=== PATIENT | male | born 1950 | race Hispanic/Latino ===

== ENCOUNTER → 2019-12-12 | Outpatient (CLI) | payer OTHER | END | disposition home or self-care (01) | LOC: SHCH 13:08 | PROVIDERS: ATTEND Internal Medicine Cardiovascular Disease | DX: I10 Essential (primary) hypertension (principal) | CPT/HCPCS: 93306 ==

== ENCOUNTER 2020-02-19 14:50 | Inpatient (IN) | payer MEDICARE, OTHER ==
[2020-02-19] VITALS (12 sets, daily range): BP systolic 101–125; BP diastolic 39–61
[~2020-02-19] VITALS: Ht 167.6 cm; Wt 81.4 kg
[2020-02-19 15:24] LABS: BASOPHILS % (AUTO) 0.1 % (0.0-5.0); LYMPHOCYTES % (AUTO) 3.4 % (21.0-51.0); MEAN CORPUSCULAR HEMOGLOBIN 27.3 pg (27.0-33.0); MEAN CORPUSCULAR VOLUME 88.2 fL (79-99); MONOCYTES % (AUTO) 4.2 % (3.0-13.0); PLATELET COUNT (AUTO) 154 K/uL (130-400); RED BLOOD CELL COUNT(AUTO) 5.78 MIL/uL (4.50-6.20); RED CELL DISTRIBUTION WIDTH 14.8 % (11.0-15.5); WHITE BLOOD COUNT (AUTO) 9.4 K/uL (4.8-10.8)
[2020-02-19] MEDS ORDERED: ACETAMINOPHEN 325 MG TAB ONE (15:26)
[2020-02-19] MEDS ORDERED: ONDANSETRON HCL 4 MG/2 ML VIAL ONE (15:26)
[2020-02-19 15:38] LABS: INR 1.09 (0.85-1.15); PROTHROMBIN TIME 11.7 SEC (9.6-11.6)
[2020-02-19] MEDS ORDERED: SODIUM CHLORIDE 0.9% 50 ML IV ONE (15:43)
[2020-02-19] MEDS ORDERED: CEFTRIAXONE SODIUM 2 GM VIAL ONE (15:43)
[2020-02-19 16:05] LABS: ALANINE AMINOTRANSFERASE 40 U/L (12-78); ALBUMIN 3.3 g/dL (3.5-5.0); ASPARTATE AMINOTRANSFERASE 12 U/L (10-37); BILIRUBIN,TOTAL 0.9 mg/dL (0.2-1.0); CARBON DIOXIDE 15 mmol/L (21-32); CHLORIDE 91 mmol/L (101-111); CREATINE KINASE, TOTAL 132 U/L (21-232); CREATININE 4.3 mg/dL (0.5-1.5); GLOMERULAR FILTR. RATE CALC 15 mL/min (>60); MYOGLOBIN 1319 ng/mL (10-92); POTASSIUM 5.4 mmol/L (3.5-5.1); SODIUM SERUM 130 mmol/L (136-145); TOTAL PROTEIN, SERUM 6.8 g/dL (6.0-8.3); TROPONIN I < 0.04 ng/mL (0.00-0.06)
[2020-02-19 16:17] LABS: UREA NITROGEN, BLOOD 131 mg/dL (7-18)
[2020-02-19 16:34] LABS: GLUCOSE,RANDOM 1140 mg/dL (70-105)
[2020-02-19 16:53] LABS: ABG BASE EXCESS -14.2 mmol/L (-2.0-3.0); ABG HCO3 11.8 mmol/L (21.0-28.0); ABG OXYGEN SATURATION 96.7 % (95.0-99.0); ABG PCO2 29 mmHg (35-48)
[2020-02-19] MEDS ORDERED: INSULIN HUMULIN R 100 UNIT/ML 3ML ONE ×2 (17:24→18:30)
[2020-02-19 17:41] LABS: APPEARANCE,URINE Clear (CLEAR); BILIRUBIN,URINE Negative (NEGATIVE); COLOR,URINE Yellow (YELLOW); GLUCOSE, URINE (UA) >=1000 mg/dL (NEGATIVE); KETONES,URINE 15 mg/dL (NEGATIVE); LEUKOCYTE ESTERASE ,URINE Negative (NEGATIVE); NITRATE,URINE Negative (NEGATIVE); OCCULT BLOOD,URINE Small (NEGATIVE); PROTEIN,URINE Trace mg/dL (NEGATIVE); UROBILINOGEN,URINE 0.2 mg/dL (0.2-1.0)
[2020-02-19 18:13] LABS: BACTERIA,URINE Few /HPF (None Seen); MUCUS,URINE Few LPF (None Seen); SQUAMOUS EPITHELIAL CELL,UR Few /HPF (0-2)
[2020-02-19] MEDS ORDERED: SODIUM CHLORIDE 0.9% 100 ML IV ONE (18:31)
[2020-02-19] MEDS ORDERED: GLUCAGON 1MG KIT 1 MG ML IM PRN (21:15)
[2020-02-19] MEDS ORDERED: SODIUM CHLORIDE 0.9% 1000ML 1,000 ML IV SCH ×2 (21:15→21:30)
[2020-02-19] MEDS ORDERED: ACETAMINOPHEN 325 MG TAB PO PRN (21:15)
[2020-02-19] MEDS ORDERED: DEXTROSE 5 %-0.45 % NACL 1,000 ML IV SCH (21:15)
[2020-02-19] MEDS ORDERED: COMPOUND IV REFRIGERATED 1 EACH IVSOLN MISC PRN (21:15)
[2020-02-19] MEDS ORDERED: DEXTROSE 50%-WATER 50 ML DISP.SYRIN IV PRN (21:15)
[2020-02-19] MEDS ORDERED: INSULIN PRN ×4 (21:15)
[2020-02-19] MEDS ORDERED: ONDANSETRON HCL 4 MG/2 ML VIAL IVP PRN (21:15)
[2020-02-19] MEDS ORDERED: DEXTROSE 5 %-0.45 % NACL 1,000 ML IV PRN (21:30)
[2020-02-19] MEDS ORDERED: SODIUM CHLORIDE 0.9% 1000ML 1,000 ML IV ONE (21:32)
[2020-02-19 23:35] LABS: CREATININE 3.4 mg/dL (0.5-1.5); POTASSIUM 3.5 mmol/L (3.5-5.1)
[2020-02-20] VITALS (24 sets, daily range): BP systolic 119–156; BP diastolic 42–98
[2020-02-20 05:24] LABS: BASOPHILS % (AUTO) 0.1 % (0.0-5.0); EOSINOPHILS % (AUTO) 0.1 % (0.0-8.0); HEMATOCRIT 47.8 % (42-54); LYMPHOCYTES % (AUTO) 3.2 % (21.0-51.0); MEAN CORPUSCULAR HEMOGLOBIN 27.7 pg (27.0-33.0); MEAN CORPUSCULAR HGB CONC 33.7 g/dL (32.0-36.0); MEAN CORPUSCULAR VOLUME 82.1 fL (79-99); MONOCYTES % (AUTO) 4.5 % (3.0-13.0); NEUTROPHILS % (AUTO) 91.7 % (40.0-77.0); PLATELET COUNT (AUTO) 103 K/uL (130-400); RED BLOOD CELL COUNT(AUTO) 5.82 MIL/uL (4.50-6.20); RED CELL DISTRIBUTION WIDTH 13.9 % (11.0-15.5); WHITE BLOOD COUNT (AUTO) 13.9 K/uL (4.8-10.8)
[2020-02-20 05:30] LABS: HEMOGLOBIN A1C 11.1 % (4.0-6.0)
[2020-02-20 05:55] LABS: ALBUMIN 3.1 g/dL (3.5-5.0); BILIRUBIN,TOTAL 0.8 mg/dL (0.2-1.0); CREATININE 2.9 mg/dL (0.5-1.5); MAGNESIUM 3.8 mg/dL (1.80-2.40); POTASSIUM 3.5 mmol/L (3.5-5.1); THYROID STIMULATING HORMONE 0.11 uIU/mL (0.36-3.74); TOTAL PROTEIN, SERUM 6.2 g/dL (6.0-8.3)
--- NOTE | 2020-02-20 08:15 | NUR ---
AM ASSESSMENT PT LAYING IN BED, RESTING. A/O X 3. NO SOB. NO DISTRESS NOTED. DENIES CHEST PAIN OR DISCOMFORT. DENIES PALPITATIONS. TELE; SR. DENIES N/V AND/OR DIARRHEA. NPO STATUS REINFORCED. INSULIN GTT INFUSING @ 5 UNITS/HR. D5 1/2 NS INFUSION DECREASED TO @ 100 ML/HR. CONTINENT BLADDER & BOWEL. URINAL @ BEDSIDE. BEDREST. INSTRUCTED TO CALL FOR ASSISTANCE. CALL RADHA W/IN REACH.
[2020-02-20] MEDS: FAMOTIDINE/PF 20 MG/2 ML VIAL IV SCH ×2 (08:43→08:46)
[2020-02-20 11:39] LABS: CREATININE 2.5 mg/dL (0.5-1.5); POTASSIUM 3.1 mmol/L (3.5-5.1)
--- NOTE | 2020-02-20 13:04 | NUR ---
1215 spoke to patient and spose in room, spouse requesting information to switch from VA Plan to Medicare. I spoke to Louisa with [employer], stated she will contact patient.
--- NOTE | 2020-02-20 13:35 | NUR ---
MD VISIT DR GAGE IN TO SEE PT. PT'S SPOUSE @ BEDSIDE. UPDATED ON PT'S STATUS 8 PLAN OF CARE REVIEWED W/PT & PT'S SPOUSE. ORDERS RECEIVED & ENTERED. PT TO BEGIN CLEAR LIQUID DIET. INSULIN GTT TO BE WEANED OFF.
[2020-02-20] MEDS ORDERED: GLUCAGON 1MG KIT 1 MG ML IM PRN (13:45)
[2020-02-20] MEDS ORDERED: DEXTROSE 50%-WATER 50 ML DISP.SYRIN IV PRN (13:45)
[2020-02-20] MEDS: 1/2 NORMAL SALINE + 20 MEQ KCL 1,000 ML IV SCH ×2 (14:44→23:45)
[2020-02-20] MEDS ORDERED: INSULIN GLARGINE 100 UNITS/ML 10 ML VIAL SQ ONE (15:15)
[2020-02-20] MEDS ORDERED: ATEN50TA PO (16:21)
[2020-02-20] MEDS ORDERED: FOLI0.8T22 PO (16:21)
[2020-02-20] MEDS ORDERED: ATOR-2 PO (16:21)
[2020-02-20] MEDS ORDERED: HYDR25TA PO (16:21)
[2020-02-20] MEDS ORDERED: LOSA100T58 PO (16:21)
[2020-02-20] MEDS ORDERED: AMLO-258 PO (16:21)
[2020-02-20] MEDS ORDERED: ASPI-1443 PO (16:22)
[2020-02-20] MEDS ORDERED: METF-444 PO (16:22)
--- NOTE | 2020-02-20 16:40 | NUR ---
DC PLAN PATIENT LIVES WITH SPOUSE. INDEPENDENT ABLE TO PERFORM ADL'S. PATIENT HAS NO SERVICES. USES A WALKER. FEELS SAFE TO RETURN HOME. Addendum: 02/20/20 at 1642 by LIZ KIM RN CM Amended: Links added.
[2020-02-20] MEDS: INSULIN HUMULIN R 100 UNIT/ML 3ML SQ SCH ×2 (17:08→21:11)
[2020-02-20] MEDS: ATORVASTATIN CALCIUM 20 MG TABLET PO SCH (21:12)
[2020-02-21] VITALS (16 sets, daily range): BP systolic 118–145; BP diastolic 68–96
[2020-02-21 03:14] LABS: HEMATOCRIT 45.2 % (42-54); MEAN CORPUSCULAR HEMOGLOBIN 27.4 pg (27.0-33.0); MEAN CORPUSCULAR HGB CONC 33.6 g/dL (32.0-36.0); MEAN CORPUSCULAR VOLUME 81.4 fL (79-99); RED BLOOD CELL COUNT(AUTO) 5.55 MIL/uL (4.50-6.20); RED CELL DISTRIBUTION WIDTH 14.3 % (11.0-15.5); WHITE BLOOD COUNT (AUTO) 8.9 K/uL (4.8-10.8)
[2020-02-21 03:35] LABS: CREATININE 2.1 mg/dL (0.5-1.5); MAGNESIUM 2.4 mg/dL (1.80-2.40); PHOSPHORUS 1.7 mg/dL (2.5-4.9); POTASSIUM 3.1 mmol/L (3.5-5.1); URIC ACID 6.5 mg/dL (2.6-7.2)
[2020-02-21] MEDS: INSULIN HUMULIN R 100 UNIT/ML 3ML SQ SCH ×4 (07:30→20:54)
[2020-02-21] MEDS: FAMOTIDINE/PF 20 MG/2 ML VIAL IV SCH (08:11)
[2020-02-21] MEDS: Vitamin B Complex/Vit C/Folic Acid PO SCH (08:11)
[2020-02-21] MEDS: ASPIRIN 81 MG EC TAB PO SCH (08:11)
[2020-02-21] MEDS ORDERED: NON-FORMULARY MEDICATION 1 EACH (Folic Acid/Vitamin B Comp W-C (Rena-Vite Tablet) 1 TAB) PO SCH (09:00)
[2020-02-21] MEDS ORDERED: INSULIN GLARGINE 100 UNITS/ML 10 ML VIAL SQ SCH (09:00)
[2020-02-21] MEDS: 1/2 NORMAL SALINE + 20 MEQ KCL 1,000 ML IV SCH (09:45)
--- NOTE | 2020-02-21 10:35 | NUR ---
DYSPHAGIA EVAL COMPLETED. -S/S OF ASPIRATION. RECOMMEND REGULAR TEXTURE,THIN LIQUIDS; PILLS WHOLE WITH LIQUIDS. Addendum: 02/21/20 at 1039 by TRA TERRELL, [facility] Amended: Links added.
--- NOTE | 2020-02-21 10:38 | NUR ---
RD NOTIFICATION Pt admitted due to DKA and Renal Failure. Pt had a BG of 1140 upon admission with an A1C of 11.1 Upon admission pt stated having dysphagia issues. Pt is still having dysphagia problems. ASBESTOS CLOTH INSPECTOR consult has been placed. Pt is currently on a CLD and consuming 100% as per EMR. RD RECOMMENDATION: When medically appropriate to advance pt to a regular diet. Consider a [address] will follow renal function and make recommendations. Due to current low potassium and phosphorus, renal non HD diet modifier is not recommended. Follow ASBESTOS CLOTH INSPECTOR recommendations for any other texture modifications. Monitor labs. Pt has low potassium and low phosphors, if medically feasible consider supplementation. RD will follow with diet education. LABS: NA 155, K 3.1, CL 118, BUN 44, CREAT 2.1, GFR 33, BG 202, URIC ACID 6.5, PHOS 1.7, TOT CA 8.4, ALB 3.1, LACTIC ACID 2.2 Addendum: 02/21/20 at [address] Amended: Links added.
--- NOTE | 2020-02-21 14:00 | NUR ---
DR. GAGE ROUNDS DR. GAGE AT BEDSIDE. INCREASE AM LANTUS. 20MEQ PO OF POTASSIUM GIVEN PER DR. GOLDEN.
--- NOTE | 2020-02-21 15:42 | NUR ---
RD TEACHING NOTE RD contacted pt through pt's room phone in the AM. Pt requested education be done later in the day. RD faxed educational material for DM, and S/S of Hyperglycemia. RD called again at 3:40 PM, no answer. Unable to conduct education at this time. RD will continue to follow pt. Contact dietary as nutritional concerns arise. Thank you. Addendum: 02/21/20 at [address] Amended: Links added.
[2020-02-21] MEDS ORDERED: POTASSIUM CHLORIDE 20 MEQ ERTAB PO ONE (15:47)
[2020-02-21] MEDS: ATORVASTATIN CALCIUM 20 MG TABLET PO SCH (20:54)
[2020-02-22 03:00] VITALS: BP 143/85
[2020-02-22 03:59] LABS: HEMATOCRIT 47.5 % (42-54); MEAN CORPUSCULAR HEMOGLOBIN 27.1 pg (27.0-33.0); MEAN CORPUSCULAR HGB CONC 32.6 g/dL (32.0-36.0); MEAN CORPUSCULAR VOLUME 82.9 fL (79-99); PLATELET COUNT (AUTO) 66 K/uL (130-400); RED BLOOD CELL COUNT(AUTO) 5.73 MIL/uL (4.50-6.20); RED CELL DISTRIBUTION WIDTH 14.7 % (11.0-15.5); WHITE BLOOD COUNT (AUTO) 8.5 K/uL (4.8-10.8)
[2020-02-22 04:07] LABS: CREATININE 1.8 mg/dL (0.5-1.5); MAGNESIUM 2.2 mg/dL (1.80-2.40); PHOSPHORUS 2.2 mg/dL (2.5-4.9); POTASSIUM 3.6 mmol/L (3.5-5.1)
[2020-02-22 04:28] LABS: BAND NEUTROPHILS % (MANUAL) 2 % (0-2); EOSINOPHILS % (MANUAL) 3 % (1-6); LYMPHOCYTES % (MANUAL) 16 % (22-44); MAN.DIFF COMMENT-IMPRESSION MANUAL DIFFERENTIAL; MONOCYTES % (MANUAL) 1 % (2-9); PLATELET MORPHOLOGY COMMENT DECREASED; REACTIVE LYMPHOCYTES 2 % (0-0); SEGMENTED NEUTROPHILS % 76 % (40-70)
[2020-02-22] MEDS: INSULIN HUMULIN R 100 UNIT/ML 3ML SQ SCH ×4 (06:42→20:39)
[2020-02-22 07:30] VITALS: BP 158/93
[2020-02-22] MEDS: Vitamin B Complex/Vit C/Folic Acid PO SCH (09:01)
[2020-02-22] MEDS: ASPIRIN 81 MG EC TAB PO SCH (09:02)
[2020-02-22] MEDS: FAMOTIDINE/PF 20 MG/2 ML VIAL IV SCH (09:02)
[2020-02-22] MEDS: INSULIN GLARGINE 100 UNITS/ML 10 ML VIAL SQ SCH (09:03)
[2020-02-22 11:00] VITALS: BP 154/86
--- NOTE | 2020-02-22 11:25 | NUR ---
Report given to Digna Gonzalez RN, to assume nursing care for the rest of the shift
[2020-02-22 13:00] VITALS: BP 138/79
--- NOTE | 2020-02-22 13:45 | NUR ---
TRANSFER REPORT GIVEN TO VINEET CONTRERAS AND PATIENT MOVED TO ROOM 301. PATIENT'S AT BEDSIDE. VS WNL CHARTED.
--- NOTE | 2020-02-22 14:00 | NUR ---
RECEIVED PT TRANSFER FROM 2ND FLOOR I HAVE ORIENTED HIM AND HIS TO ROOM AND CALL LIGHT SYSTEM. PT STATED UNDERSTANDINIG AND ALL OF HIS QUESTIONS ANSWERED.
[2020-02-22 16:00] VITALS: BP 133/87
[2020-02-22 20:16] VITALS: BP 136/85
[2020-02-22] MEDS: ATORVASTATIN CALCIUM 20 MG TABLET PO SCH (21:55)
[2020-02-22] MEDS: DOCUSATE CALCIUM 240 MG CAP PO SCH (21:55)
[2020-02-23 00:16] VITALS: BP 137/85
[2020-02-23 04:16] VITALS: BP 156/90
[2020-02-23 05:47] LABS: HEMATOCRIT 45.9 % (42-54); MEAN CORPUSCULAR HEMOGLOBIN 27.2 pg (27.0-33.0); MEAN CORPUSCULAR HGB CONC 32.7 g/dL (32.0-36.0); MEAN CORPUSCULAR VOLUME 83.3 fL (79-99); PLATELET COUNT (AUTO) 69 K/uL (130-400); RED BLOOD CELL COUNT(AUTO) 5.51 MIL/uL (4.50-6.20); RED CELL DISTRIBUTION WIDTH 14.6 % (11.0-15.5); WHITE BLOOD COUNT (AUTO) 8.7 K/uL (4.8-10.8)
[2020-02-23 06:02] LABS: CREATININE 1.8 mg/dL (0.5-1.5); MAGNESIUM 2.1 mg/dL (1.80-2.40); PHOSPHORUS 2.9 mg/dL (2.5-4.9); POTASSIUM 4.4 mmol/L (3.5-5.1)
[2020-02-23] MEDS: INSULIN HUMULIN R 100 UNIT/ML 3ML SQ SCH ×4 (07:30→21:19)
[2020-02-23 08:00] VITALS: BP 130/87
[2020-02-23 08:33] LABS: EOSINOPHILS % (MANUAL) 1 % (1-6); LYMPHOCYTES % (MANUAL) 6 % (22-44); MAN.DIFF COMMENT-IMPRESSION MANUAL DIFFERENTIAL; MONOCYTES % (MANUAL) 6 % (2-9); PLATELET MORPHOLOGY COMMENT DECREASED; SEGMENTED NEUTROPHILS % 87 % (40-70)
[2020-02-23] MEDS: FAMOTIDINE/PF 20 MG/2 ML VIAL IV SCH (09:09)
[2020-02-23] MEDS: Vitamin B Complex/Vit C/Folic Acid PO SCH (09:09)
[2020-02-23] MEDS: ASPIRIN 81 MG EC TAB PO SCH (09:09)
[2020-02-23] MEDS: DOCUSATE CALCIUM 240 MG CAP PO SCH ×2 (09:09→21:14)
[2020-02-23] MEDS: INSULIN GLARGINE 100 UNITS/ML 10 ML VIAL SQ SCH (09:11)
[2020-02-23 09:33] LABS: APPEARANCE,URINE Clear (CLEAR); BILIRUBIN,URINE Negative (NEGATIVE); COLOR,URINE Yellow (YELLOW); GLUCOSE, URINE (UA) 500 mg/dL (NEGATIVE); KETONES,URINE 15 mg/dL (NEGATIVE); LEUKOCYTE ESTERASE ,URINE Negative (NEGATIVE); NITRATE,URINE Negative (NEGATIVE); OCCULT BLOOD,URINE Trace (NEGATIVE); PROTEIN,URINE POS 1+ mg/dL (NEGATIVE)
[2020-02-23 10:17] LABS: BACTERIA,URINE Rare /HPF (None Seen); RBC,URINE None Seen /HPF (0-1); SQUAMOUS EPITHELIAL CELL,UR 0-2 /HPF (0-2); WBC,URINE None Seen /HPF (0-1)
[2020-02-23 11:57] VITALS: BP 141/95
[2020-02-23 16:00] VITALS: BP 155/83
--- NOTE | 2020-02-23 16:36 | NUR ---
I HAVE GIVEN PT AND HIS EDUCATION ON DIABETIC MANAGEMENT INCLUDING HOW TO INJECT, DIFFERENT KINDS OF INSULIN, SIGNS AND SYMPTOMS OF HIGH AND LOW BLOOD SUGAR LEVELS TO WATCH FOR AND WHEN TO CALL 911, HOW TO TREAT LOW BLOOD SUGARS AT HOME, DM FOOT CARE. PT AND STATED UNDERSTANDING OF ALL INSTRUCTIONS AND I HAVE GIVEN THEM HANDOUTS ON ALL THE INFORMATION; I HAVE ENTERED ORDERS FOR CASE MANAGEMENT TO SEE THEM BECAUSE PT HAS NO GLUCOMETER MACHINE AND MAY REQUIRE ASSISTANCE IN PURCHASING ONE. I ALSO HAVE ENTERED FOR DIETARY TO SEE THE PATIENT FOR MORE EDUCATION ON DIET SELECTIONS.
[2020-02-23 19:00] VITALS: BP 142/80
[2020-02-23] MEDS: ATORVASTATIN CALCIUM 20 MG TABLET PO SCH (21:14)
[2020-02-24] VITALS: BP 131/69
[2020-02-24 03:53] VITALS: BP 124/71
[2020-02-24 06:07] LABS: HEMATOCRIT 41.8 % (42-54); MEAN CORPUSCULAR HGB CONC 32.8 g/dL (32.0-36.0); MEAN CORPUSCULAR VOLUME 82.3 fL (79-99); PLATELET COUNT (AUTO) 113 K/uL (130-400); RED BLOOD CELL COUNT(AUTO) 5.08 MIL/uL (4.50-6.20); RED CELL DISTRIBUTION WIDTH 14.4 % (11.0-15.5); WHITE BLOOD COUNT (AUTO) 8.4 K/uL (4.8-10.8)
[2020-02-24] MEDS: INSULIN HUMULIN R 100 UNIT/ML 3ML SQ SCH ×4 (06:37→21:35)
[2020-02-24 07:16] LABS: EOSINOPHILS % (MANUAL) 2 % (1-6); LYMPHOCYTES % (MANUAL) 12 % (22-44); MAN.DIFF COMMENT-IMPRESSION MANUAL DIFFERENTIAL; MONOCYTES % (MANUAL) 4 % (2-9); PLATELET MORPHOLOGY COMMENT SLIGHTLY DECREASED; REACTIVE LYMPHOCYTES 1 % (0-0); SEGMENTED NEUTROPHILS % 81 % (40-70)
[2020-02-24 07:59] VITALS: BP 145/90
[2020-02-24] MEDS: Vitamin B Complex/Vit C/Folic Acid PO SCH (09:45)
[2020-02-24] MEDS: ASPIRIN 81 MG EC TAB PO SCH (09:45)
[2020-02-24] MEDS: DOCUSATE CALCIUM 240 MG CAP PO SCH ×2 (09:45→21:35)
[2020-02-24] MEDS: FAMOTIDINE/PF 20 MG/2 ML VIAL IV SCH (09:47)
[2020-02-24] MEDS: INSULIN GLARGINE 100 UNITS/ML 10 ML VIAL SQ SCH (10:02)
[2020-02-24 11:41] VITALS: BP 137/73
--- NOTE | 2020-02-24 13:00 | NUR ---
RD TEACHING NOTE Pt transferred to room 301. RD was able to visit with patient and and successfully conduct DM education. Pt had previous educational material faxed at bedside. RD used the material and conducted education. RD explained carbohydrate sources, carbohydrate counting, nutrition facts label reading, portion control, and gave examples of daily meals. Pt and verbalized understanding. Pt and were encouraged to take free community classes for DM education. Pt was also encouraged to check blood sugars, fasting and 2 hr after meals. A notebook where they can write blood sugar levels was encouraged as well. RD will continue to follow. Thank you. Addendum: 02/24/20 at [address] Amended: Links added.
--- NOTE | 2020-02-24 13:09 | NUR ---
RD NOTE Pt was seen in room 301. Pt was resting comfortably with at bedside. RD education conducted 02/24/20 at time of visit. All questions were answered. Pt and verbalized understanding. Pt is tolerating diet well and consuming 100%. Pt is on a renal non HD diet with no concentrated sweets. LBM: as per EMR 02/17/20 RD recommendation: Add 75 gm CC modifier to current diet order Monitor PO intake. Monitor BG labs LABS: BG 258, ALB 3.1, TOT PRO 6.2, PHOS 2.9, A1C 11.[address] as nutritional concerns arise. Thank you. Addendum: 02/24/20 at [address] Amended: Links added.
[2020-02-24 15:50] VITALS: BP 118/78
--- NOTE | 2020-02-24 16:25 | NUR ---
DC PLAN GOT ORDER [facility] DIABETIC SUPPLY ASSISTANCE. CALLED [facility]. GOT DIFFERENT PRICES FOR COUPONS AND MEDICATION. GAVE INFO TO NURSE AND PACKET TO GIVE TO PATIENT. Addendum: 02/24/20 at 1626 by LIZ KIM RN CM Amended: Links added.
[2020-02-24] MEDS ORDERED: LACTULOSE 20 GM/30 ML UDCUP ONE (18:44)
[2020-02-24] MEDS ORDERED: LACTULOSE 20 GM/30 ML UDCUP PO SCH (19:45)
[2020-02-24 20:00] VITALS: BP 129/82
[2020-02-24] MEDS: ATORVASTATIN CALCIUM 20 MG TABLET PO SCH (21:35)
[2020-02-25] VITALS: BP 130/76
[2020-02-25 04:00] VITALS: BP 141/79
[2020-02-25 05:15] LABS: BASOPHILS % (AUTO) 0.7 % (0.0-5.0); EOSINOPHILS % (AUTO) 4.5 % (0.0-8.0); LYMPHOCYTES % (AUTO) 14.9 % (21.0-51.0); MEAN CORPUSCULAR HGB CONC 32.8 g/dL (32.0-36.0); MEAN CORPUSCULAR VOLUME 82.5 fL (79-99); MONOCYTES % (AUTO) 9.2 % (3.0-13.0); NEUTROPHILS % (AUTO) 68.8 % (40.0-77.0); PLATELET COUNT (AUTO) 143 K/uL (130-400); RED BLOOD CELL COUNT(AUTO) 4.85 MIL/uL (4.50-6.20); RED CELL DISTRIBUTION WIDTH 14.3 % (11.0-15.5); WHITE BLOOD COUNT (AUTO) 7.3 K/uL (4.8-10.8)
[2020-02-25 05:23] LABS: CREATININE 1.6 mg/dL (0.5-1.5); POTASSIUM 3.1 mmol/L (3.5-5.1)
[2020-02-25] MEDS: INSULIN HUMULIN R 100 UNIT/ML 3ML SQ SCH ×2 (05:52→11:16)
--- NOTE | 2020-02-25 05:55 | NUR ---
potassium 3.1 Informed on-call DR. Mckenzie via phone with an order to give Potassium 20 MEQ po x 1 dose only.
[2020-02-25] MEDS ORDERED: POTASSIUM CHLORIDE 20 MEQ ERTAB PO SCH (06:00)
[2020-02-25 08:00] VITALS: BP 139/82
[2020-02-25] MEDS: Vitamin B Complex/Vit C/Folic Acid PO SCH (09:15)
[2020-02-25] MEDS: FAMOTIDINE/PF 20 MG/2 ML VIAL IV SCH (09:15)
[2020-02-25] MEDS: DOCUSATE CALCIUM 240 MG CAP PO SCH (09:15)
[2020-02-25] MEDS: ASPIRIN 81 MG EC TAB PO SCH (09:15)
[2020-02-25] MEDS: INSULIN GLARGINE 100 UNITS/ML 10 ML VIAL SQ SCH (09:24)
[2020-02-25 11:44] VITALS: BP 134/64
[2020-02-25] MEDS ORDERED: POTASSIUM CHLORIDE 20 MEQ ERTAB PO ONE (11:47)
[2020-02-25] MEDS ORDERED: INSLAN SQ (11:49)
[2020-02-25] MEDS ORDERED: FAMO-136 PO (11:49)
[2020-02-25] MEDS ORDERED: DOCU240C25 PO (11:49)
--- NOTE | 2020-02-25 12:56 | NUR ---
DISCHARGE INSTRUCTIONS REVIEWED AND UNDERSTOOD BY PT AND SPOUSE. IV REMOVED W/O DIFFICULTY OR COMPLICATION. TELEMETRY REMOVED AND RETURNED, PT DISMISSED BY W/C IN GOOD CONDITION ACCOMPANIED BY HIS AND STAFF MEMBER
== END 2020-02-25 13:00 | disposition home or self-care (01) | DRG 638 ==
LOC: EDH 14:50 → EDHIP 17:30 → 2DH 19:43 → 3AH 02-22 14:25 → 3CH 02-24 13:46
PROVIDERS: ADMIT Internal Medicine Nephrology; ATTEND Internal Medicine Nephrology
DX: E11.10 Type 2 diabetes mellitus with ketoacidosis without coma (principal); N17.9 Acute kidney failure, unspecified; E87.0 Hyperosmolality and hypernatremia; R64 Cachexia; E11.22 Type 2 diabetes mellitus with diabetic chronic kidney disease; I95.9 Hypotension, unspecified; E87.5 Hyperkalemia; Z91.19 Patient's noncompliance with other medical treatment and regimen; Z20.828 Contact with and (suspected) exposure to other viral communicable diseases; D63.8 Anemia in other chronic diseases classified elsewhere; E11.51 Type 2 diabetes mellitus with diabetic peripheral angiopathy without gangrene; E21.3 Hyperparathyroidism, unspecified; E78.5 Hyperlipidemia, unspecified; E87.6 Hypokalemia; I12.9 Hypertensive chronic kidney disease with stage 1 through stage 4 chronic kidney disease, or unspecified chronic kidney disease; I71.4 Abdominal aortic aneurysm, without rupture; N18.9 Chronic kidney disease, unspecified; R13.10 Dysphagia, unspecified; Z68.29 Body mass index [BMI] 29.0-29.9, adult; Z79.4 Long term (current) use of insulin; Z83.3 Family history of diabetes mellitus; Z86.79 Personal history of other diseases of the circulatory system
CPT/HCPCS: 36415; 36600; 71045; 80048; 80053; 81001; 82010; 82550; 82803; 82947; 82948; 83036; 83605; 83735; 83874; 84100; 84443; 84484; 84550; 85025; 85027; 85610; 85730; 87040; 87088; 87426; 87804; 87880; 92610; 93005; 97039; 99291; G0378; J0696; J1815; J2405; J3480; J3490; J7030; J7042; U0003

== ENCOUNTER 2020-02-25 23:30 | Inpatient (IN) | payer OTHER, MEDICARE ==
[~2020-02-25 23:30] MED LIST: AMLO-258 PO; ASPI-1443 PO; ATEN50TA PO; ATOR-2 PO; DOCU240C25 PO; FAMO-136 PO; FOLI0.8T22 PO; HYDR25TA PO; INSLAN SQ; LOSA100T58 PO; METF-444 PO
[2020-02-26 00:29] LABS: BASOPHILS % (AUTO) 0.5 % (0.0-5.0); EOSINOPHILS % (AUTO) 1.6 % (0.0-8.0); HEMATOCRIT 43.2 % (42-54); LYMPHOCYTES % (AUTO) 6.8 % (21.0-51.0); MEAN CORPUSCULAR HEMOGLOBIN 27.6 pg (27.0-33.0); MEAN CORPUSCULAR HGB CONC 33.3 g/dL (32.0-36.0); MEAN CORPUSCULAR VOLUME 82.8 fL (79-99); MONOCYTES % (AUTO) 5.8 % (3.0-13.0); NEUTROPHILS % (AUTO) 83.6 % (40.0-77.0); PLATELET COUNT (AUTO) 208 K/uL (130-400); RED BLOOD CELL COUNT(AUTO) 5.22 MIL/uL (4.50-6.20); RED CELL DISTRIBUTION WIDTH 14.4 % (11.0-15.5); WHITE BLOOD COUNT (AUTO) 13.3 K/uL (4.8-10.8)
[2020-02-26 00:32] LABS: APPEARANCE,URINE Clear (CLEAR); BILIRUBIN,URINE Negative (NEGATIVE); COLOR,URINE Yellow (YELLOW); GLUCOSE, URINE (UA) >=1000 mg/dL (NEGATIVE); KETONES,URINE 15 mg/dL (NEGATIVE); LEUKOCYTE ESTERASE ,URINE Negative (NEGATIVE); NITRATE,URINE Negative (NEGATIVE); OCCULT BLOOD,URINE Small (NEGATIVE); PH,URINE 5.5 (5.0-8.0); PROTEIN,URINE POS 1+ mg/dL (NEGATIVE)
[2020-02-26 00:40] LABS: BACTERIA,URINE None Seen /HPF (None Seen); RBC,URINE 0-1 /HPF (0-1)
[2020-02-26 00:45] LABS: CREATININE 1.6 mg/dL (0.5-1.5); POTASSIUM 3.7 mmol/L (3.5-5.1)
[2020-02-26 00:50] LABS: ALBUMIN 3.1 g/dL (3.5-5.0); BILIRUBIN,TOTAL 0.8 mg/dL (0.2-1.0); TOTAL PROTEIN, SERUM 6.6 g/dL (6.0-8.3)
[2020-02-26 01:27] LABS: INR 0.92 (0.85-1.15); PARTIAL THROMBOPLASTIN TIME 23.8 SEC (26.3-35.5)
[2020-02-26] MEDS ORDERED: MORPHINE SULFATE 2 MG/ML 1ML SYG IV PRN (03:15)
[2020-02-26] MEDS ORDERED: LACTULOSE 20 GM/30 ML UDCUP PO PRN (03:15)
[2020-02-26] MEDS ORDERED: SODIUM CHLORIDE 0.9% 1000ML 1,000 ML IV SCH (03:15)
[2020-02-26] MEDS ORDERED: HYDRALAZINE HCL 20 MG/ML VIAL IV PRN (03:15)
[2020-02-26] MEDS ORDERED: ACETAMINOPHEN 325 MG TAB PO PRN ×2 (03:15)
[2020-02-26] MEDS ORDERED: DEXTROSE 50%-WATER 50 ML DISP.SYRIN IV PRN (03:15)
[2020-02-26] MEDS ORDERED: GLUCAGON 1MG KIT 1 MG ML IM PRN (03:15)
[2020-02-26] MEDS ORDERED: ONDANSETRON HCL 4 MG/2 ML VIAL IV PRN (03:15)
[2020-02-26] MEDS ORDERED: HEPARIN SODIUM 5000UNIT/ML 1ML VIAL ONE (03:25)
[2020-02-26] MEDS: INSULIN HUMULIN R 100 UNIT/ML 3ML SQ SCH ×3 (06:00→18:00)
[2020-02-26] MEDS ORDERED: INSULIN HUMULIN R 100 UNIT/ML 3ML ONE (08:16)
[2020-02-26] MEDS ORDERED: FAMOTIDINE/PF 20 MG/2 ML VIAL IV ONE (08:16)
[2020-02-26] MEDS: FAMOTIDINE/PF 20 MG/2 ML VIAL IV SCH (09:00)
[2020-02-26] MEDS ORDERED: INSULIN GLARGINE 100 UNITS/ML 10 ML VIAL SQ SCH (09:15)
[2020-02-26] MEDS: LACTATED RINGERS 1000ML 1,000 ML IV SCH ×3 (09:15→23:32)
[2020-02-26] MEDS ORDERED: LACTATED RINGERS 1000ML 1,000 ML IV ONE (12:32)
[2020-02-26] MEDS: HEPARIN SODIUM 5000UNIT/ML 1ML VIAL SQ SCH ×2 (15:15→17:13)
[2020-02-26 16:00] VITALS: BP 142/81
[2020-02-26 20:16] VITALS: BP 141/79
[2020-02-27] VITALS (7 sets, daily range): BP systolic 128–157; BP diastolic 69–88
[2020-02-27] MEDS: INSULIN HUMULIN R 100 UNIT/ML 3ML SQ SCH ×4 (00:45→17:56)
[2020-02-27 05:03] LABS: BASOPHILS % (AUTO) 0.4 % (0.0-5.0); EOSINOPHILS % (AUTO) 2.4 % (0.0-8.0); HEMATOCRIT 38.6 % (42-54); LYMPHOCYTES % (AUTO) 6.4 % (21.0-51.0); MEAN CORPUSCULAR HEMOGLOBIN 27.6 pg (27.0-33.0); MEAN CORPUSCULAR HGB CONC 33.4 g/dL (32.0-36.0); MEAN CORPUSCULAR VOLUME 82.7 fL (79-99); MONOCYTES % (AUTO) 7.9 % (3.0-13.0); NEUTROPHILS % (AUTO) 81.7 % (40.0-77.0); PLATELET COUNT (AUTO) 236 K/uL (130-400); RED BLOOD CELL COUNT(AUTO) 4.67 MIL/uL (4.50-6.20); RED CELL DISTRIBUTION WIDTH 14.6 % (11.0-15.5)
[2020-02-27] MEDS: HEPARIN SODIUM 5000UNIT/ML 1ML VIAL SQ SCH ×2 (05:22→15:35)
[2020-02-27] MEDS: LACTATED RINGERS 1000ML 1,000 ML IV SCH ×3 (05:22→19:11)
[2020-02-27 05:37] LABS: CREATININE 1.4 mg/dL (0.5-1.5); MAGNESIUM 1.9 mg/dL (1.80-2.40); POTASSIUM 3.9 mmol/L (3.5-5.1)
[2020-02-27 07:43] LABS: CHOLESTEROL 131 mg/dL (<200); HDL CHOLESTEROL 35 mg/dL (29-71); LDL DIRECT 69 mg/dL (0-99); TRIGLYCERIDES 146 mg/dL (30-200)
[2020-02-27] MEDS: DOCUSATE CALCIUM 240 MG CAP PO SCH ×2 (08:46→20:39)
[2020-02-27] MEDS: Vitamin B Complex/Vit C/Folic Acid PO SCH (08:46)
[2020-02-27] MEDS: ASPIRIN 81 MG EC TAB PO SCH (08:46)
[2020-02-27] MEDS: ATENOLOL 50 MG TABLET PO SCH (08:47)
[2020-02-27] MEDS: FAMOTIDINE/PF 20 MG/2 ML VIAL IV SCH (08:47)
--- NOTE | 2020-02-27 15:35 | NUR ---
CHART CHECK COMPLETED. Pt IS AN 69-YEAR-OLD MALE ADMITTED SECONDARY TO ACUTE PANCREATITIS AND CONSTIPATION. PAST MEDICAL HISTORY SIGNIFICANT FOR DIABETES, CAD, HYPERTENSION, AND HERNIA REPAIR. PT CURRENTLY ON CLEAR THIN LIQUID DIET. PLEASE REQUEST FORMAL SKILLED SPEECH/SWALLOW EVALUATION IF Pt PRESENTS WITH +S/S OF ASPIRATION AT MEAL TIMES SUCH COUGHING, WET VOCAL QUALITY, OR THROAT CLEAR. Addendum: 02/27/20 at 1538 by TRA TERRELL [facility] Amended: Links added.
--- NOTE | 2020-02-27 16:37 | NUR ---
XAVI GOLDEN/IA MET WITH PATIENT AT BEDSIDE. PER PATIENT, IS INDEPENDENT WITH ADLS, LIVES WITH SPOUSE, HAS ROLLATOR WALKER HE DOES NOT USE AND FEELS SAFE TO RETURN HOME ONCE DISCHARGED. Addendum: 02/27/20 at 1638 by STEPHANIE AUGUSTINE RN CM Amended: Links added.
[2020-02-27] MEDS: ATORVASTATIN CALCIUM 40 MG TABLET PO SCH (20:39)
[2020-02-27] MEDS: INSULIN GLARGINE 100 UNITS/ML 10 ML VIAL SQ SCH (20:46)
[2020-02-27] MEDS: INSULIN LISPRO 100 UNIT/ML 3ML SQ SCH (21:00)
[2020-02-27] MEDS ORDERED: INSULIN HUMULIN R 100 UNIT/ML 3ML SQ SCH (21:00)
[2020-02-28 04:00] VITALS: BP 122/72
[2020-02-28] MEDS: HEPARIN SODIUM 5000UNIT/ML 1ML VIAL SQ SCH ×2 (04:23→15:11)
[2020-02-28 05:28] LABS: BASOPHILS % (AUTO) 0.6 % (0.0-5.0); EOSINOPHILS % (AUTO) 3.4 % (0.0-8.0); HEMATOCRIT 34.5 % (42-54); LYMPHOCYTES % (AUTO) 7.3 % (21.0-51.0); MEAN CORPUSCULAR HEMOGLOBIN 27.4 pg (27.0-33.0); MEAN CORPUSCULAR HGB CONC 32.8 g/dL (32.0-36.0); MEAN CORPUSCULAR VOLUME 83.5 fL (79-99); MONOCYTES % (AUTO) 10.5 % (3.0-13.0); NEUTROPHILS % (AUTO) 77.2 % (40.0-77.0); PLATELET COUNT (AUTO) 230 K/uL (130-400); RED BLOOD CELL COUNT(AUTO) 4.13 MIL/uL (4.50-6.20); RED CELL DISTRIBUTION WIDTH 14.7 % (11.0-15.5); WHITE BLOOD COUNT (AUTO) 8.7 K/uL (4.8-10.8)
[2020-02-28] MEDS: INSULIN LISPRO 100 UNIT/ML 3ML SQ SCH ×7 (05:33→21:05)
[2020-02-28 05:46] LABS: CREATININE 1.3 mg/dL (0.5-1.5); MAGNESIUM 1.8 mg/dL (1.80-2.40); POTASSIUM 3.6 mmol/L (3.5-5.1)
[2020-02-28 08:00] VITALS: BP 144/78
[2020-02-28] MEDS: FAMOTIDINE/PF 20 MG/2 ML VIAL IV SCH (09:31)
[2020-02-28] MEDS: DOCUSATE CALCIUM 240 MG CAP PO SCH ×2 (09:31→20:54)
[2020-02-28] MEDS: Vitamin B Complex/Vit C/Folic Acid PO SCH (09:31)
[2020-02-28] MEDS: ATENOLOL 50 MG TABLET PO SCH (09:32)
[2020-02-28] MEDS: ASPIRIN 81 MG EC TAB PO SCH (09:32)
[2020-02-28 12:00] VITALS: BP 136/77
[2020-02-28] MEDS: LACTATED RINGERS 1000ML 1,000 ML IV SCH ×2 (12:42→21:10)
[2020-02-28] MEDS ORDERED: POLYETHYLENE GLYCOL 3350 17 GM POWD.PACK PO SCH (13:00)
[2020-02-28 16:00] VITALS: BP 148/82
[2020-02-28 19:45] VITALS: BP 132/71
[2020-02-28] MEDS: INSULIN GLARGINE 100 UNITS/ML 10 ML VIAL SQ SCH (20:48)
[2020-02-28] MEDS: ATORVASTATIN CALCIUM 40 MG TABLET PO SCH (20:54)
[2020-02-28 23:59] VITALS: BP 135/79
[2020-02-29] MEDS: HEPARIN SODIUM 5000UNIT/ML 1ML VIAL SQ SCH (03:03)
[2020-02-29 04:40] VITALS: BP 142/73
[2020-02-29 06:22] LABS: BASOPHILS % (AUTO) 0.6 % (0.0-5.0); EOSINOPHILS % (AUTO) 4.1 % (0.0-8.0); HEMATOCRIT 35.2 % (42-54); LYMPHOCYTES % (AUTO) 8.8 % (21.0-51.0); MEAN CORPUSCULAR HEMOGLOBIN 27.6 pg (27.0-33.0); MEAN CORPUSCULAR HGB CONC 33.5 g/dL (32.0-36.0); MEAN CORPUSCULAR VOLUME 82.4 fL (79-99); MONOCYTES % (AUTO) 8.6 % (3.0-13.0); NEUTROPHILS % (AUTO) 77.2 % (40.0-77.0); PLATELET COUNT (AUTO) 290 K/uL (130-400); RED BLOOD CELL COUNT(AUTO) 4.27 MIL/uL (4.50-6.20); RED CELL DISTRIBUTION WIDTH 14.6 % (11.0-15.5); WHITE BLOOD COUNT (AUTO) 8.3 K/uL (4.8-10.8)
[2020-02-29 06:37] LABS: CREATININE 1.3 mg/dL (0.5-1.5); MAGNESIUM 1.8 mg/dL (1.80-2.40); POTASSIUM 3.7 mmol/L (3.5-5.1)
[2020-02-29 07:00] VITALS: BP 178/79
[2020-02-29] MEDS: INSULIN LISPRO 100 UNIT/ML 3ML SQ SCH ×4 (07:00→12:53)
[2020-02-29] MEDS: ASPIRIN 81 MG EC TAB PO SCH (08:19)
[2020-02-29] MEDS: FAMOTIDINE/PF 20 MG/2 ML VIAL IV SCH (08:19)
[2020-02-29] MEDS: Vitamin B Complex/Vit C/Folic Acid PO SCH (08:20)
[2020-02-29] MEDS: ATENOLOL 50 MG TABLET PO SCH (08:20)
[2020-02-29] MEDS: DOCUSATE CALCIUM 240 MG CAP PO SCH (08:20)
[2020-02-29] MEDS ORDERED: POLYETHYLENE GLYCOL 3350 17 GM POWD.PACK PO SCH (09:00)
[2020-02-29 11:00] VITALS: BP 126/71
--- NOTE | 2020-02-29 13:00 | NUR ---
PT AND SPOUSE STATE UNDERSTANDING OF DISCHARGE INSTRUCTIONS AND MEDICATION SCHEDULE. IV REMOVED W/O DIFFICULTY OR COMPLICATION. PT DISMISSED BY W/C IN GOOD CONDITION ACCOMPANIED BY STAFF AND SPOUSE
== END 2020-02-29 14:10 | disposition home or self-care (01) | DRG 440 ==
LOC: EDH 23:30 → EDHIP 02-26 03:08 → 4AH 02-26 15:42
PROVIDERS: ADMIT Internal Medicine; ATTEND Internal Medicine
DX: K85.90 Acute pancreatitis without necrosis or infection, unspecified (principal); I12.9 Hypertensive chronic kidney disease with stage 1 through stage 4 chronic kidney disease, or unspecified chronic kidney disease; N18.30 Chronic kidney disease, stage 3 unspecified; K59.00 Constipation, unspecified; E11.51 Type 2 diabetes mellitus with diabetic peripheral angiopathy without gangrene; E78.5 Hyperlipidemia, unspecified; E66.9 Obesity, unspecified; I71.9 Aortic aneurysm of unspecified site, without rupture; Z20.828 Contact with and (suspected) exposure to other viral communicable diseases; E11.22 Type 2 diabetes mellitus with diabetic chronic kidney disease; R19.04 Left lower quadrant abdominal swelling, mass and lump; Z79.899 Other long term (current) drug therapy; Z79.4 Long term (current) use of insulin
CPT/HCPCS: 36415; 74176; 74181; 80048; 80053; 80061; 81001; 82948; 83605; 83690; 83735; 84484; 85025; 85610; 85730; 93005; G0378; J1644; J1815; J3490; J7120; U0003

== ENCOUNTER → 2020-05-15 | Outpatient (CLI) | payer OTHER, MEDICARE ==
[~2020-05-15] MED LIST changes: -AMLO-258 PO; -HYDR25TA PO; -LOSA100T58 PO; -METF-444 PO
== END | disposition home or self-care (01) ==
LOC: RAH 07:35
PROVIDERS: ATTEND Internal Medicine Gastroenterology
DX: N28.1 Cyst of kidney, acquired (principal); N26.1 Atrophy of kidney (terminal); K85.90 Acute pancreatitis without necrosis or infection, unspecified; R93.3 Abnormal findings on diagnostic imaging of other parts of digestive tract
CPT/HCPCS: 74181; 76700

== ENCOUNTER → 2023-03-01 | Outpatient (CLI) | payer OTHER, MEDICARE ==
[2023-03-01 12:51] LABS: CREATININE 1.6 mg/dL (0.5-1.5); POTASSIUM 3.9 mmol/L (3.5-5.1)
== END | disposition home or self-care (01) ==
LOC: LAB 10:17
PROVIDERS: ATTEND Internal Medicine Cardiovascular Disease
DX: I10 Essential (primary) hypertension (principal)
CPT/HCPCS: 36415; 80048

== ENCOUNTER → 2023-03-13 | Outpatient (CLI) | payer OTHER ==
[~2023-03-13] MED LIST changes: +IOHEXOL 350 MG/ML 100ML INFUS..BTL IV ONE
== END | disposition home or self-care (01) ==
LOC: RAH 08:45
PROVIDERS: ATTEND Internal Medicine Cardiovascular Disease
DX: I71.02 Dissection of abdominal aorta (principal); I73.9 Peripheral vascular disease, unspecified
CPT/HCPCS: 71275; Q9967

== ENCOUNTER 2023-03-31 07:04 | Day surgery (SDC) | payer OTHER ==
[~2023-03-31 07:04] MED LIST changes: -IOHEXOL 350 MG/ML 100ML INFUS..BTL IV ONE
[2023-03-31] MEDS ORDERED: 0.9%NACL 1000ML 1,000 ML IV ONE (09:10)
[2023-03-31] MEDS ORDERED: IOHEXOL 350 MG/ML 100ML INFUS..BTL IV ONE (11:28)
[2023-03-31 13:00] VITALS: BP 160/81; PULSE 78; RESP 15
[2023-03-31 16:00] VITALS: BP 158/77; PULSE 76; RESP 16
== END 2023-03-31 16:00 | disposition home or self-care (01) ==
LOC: DAH 07:04
PROVIDERS: ATTEND Internal Medicine Cardiovascular Disease
DX: I73.9 Peripheral vascular disease, unspecified (principal); N26.1 Atrophy of kidney (terminal); I71.02 Dissection of abdominal aorta; I71.23 Aneurysm of the descending thoracic aorta, without rupture
CPT/HCPCS: 82948 ×2; 74174; 71275; J7030; Q9967

== ENCOUNTER → 2023-04-27 | Outpatient (CLI) | payer OTHER | END | disposition home or self-care (01) | LOC: SHCH 14:21 | PROVIDERS: ATTEND Internal Medicine Cardiovascular Disease | DX: I87.2 Venous insufficiency (chronic) (peripheral) (principal); R60.9 Edema, unspecified; I71.40 Abdominal aortic aneurysm, without rupture, unspecified | CPT/HCPCS: 93970 ==

== ENCOUNTER 2024-07-10 11:19 | Emergency (ER) | payer OTHER ==
[~2024-07-10] VITALS: Ht 167.6 cm; Wt 93.4 kg
[~2024-07-10 11:19] MED LIST changes: +ACET-66 PO
[2024-07-10 11:20] VITALS: BP 156/74; PULSE 67; RESP 18; TEMP 97.9
--- NOTE | 2024-07-10 11:42 | ERN ---
General Chief Complaint: Other Problems Stated Complaint: REMOVAL OF RHINO ROCKET Time Seen by MD: 11: Time Seen by Midlevel: 11:20 Source: patient History of Present Illness Initial Comments 74 y/o male who presents to the emergency department for removal of a wrong walking from the right nostril. Patient had the rhino rocket placed three days ago for epistaxis here in the ED. Patient followed up with PCP referred patient back to the ED for removal. Patient denies any bleeding or further associated symptoms. PMHx DM, HTN, TIA Allergies: Coded Allergies: No Known Drug Allergies (Unverified Allergy, Unknown, 02/19/20) Home Meds Active Scripts Sodium Chloride (Saline Nasal [place]) 0.65 % [place], 1 SPRAY NS QID for 7 Days, #60 ML 0 Refills Prov:JAKE CADENA 07/10/24 Acetaminophen (Tylenol) 500 Mg Tab, 1 TAB PO Q6HPRN PRN for pain or fever for 5 Days, #30 TAB 0 Refills Prov:LEORA GARCIA MD 07/07/24 Famotidine (Pepcid) 20 Mg Tablet, 20 MG PO DAILY for 30 Days, TAB Prov:LESLIE GAGE MD 02/25/20 Insulin Glargine,Hum.rec.anlog (Lantus) 100 Units/Ml Inj, 20 UNITS SQ DAILY for 30 Days, #30 ML Prov:LESLIE GAGE MD 02/25/20 Docusate Calcium (Docusate Calcium) 240 Mg Capsule, 240 MG PO BID for 30 Days, #60 CAP Prov:LESLIE GAGE MD 02/25/20 Reported Medications Aspirin (Aspirin EC) 81 Mg Tablet.dr, 81 MG PO DAILY, TAB 02/20/20 Folic Acid/Vitamin B Comp W-C (Corrie-Pia Tablet) 0.8 Mg Tablet, 1 TAB PO DAILY, TAB 02/20/20 Atorvastatin Calcium (Atorvastatin Calcium) 80 Mg Tablet, 80 MG PO HS, TAB 02/20/20 Atenolol (Atenolol) 50 Mg Tablet, 50 MG PO DAILY, TAB 02/20/20 Past Medical History Past Medical History: Diabetes-Type II, Hypertension, TIA Past Surgical History: None ROS Dictation Constitutional: Negative for fever,chills, and weight loss Eyes: Negative for injury, pain,redness, and discharge ENT: Negative for injury,pain or swelling Cardiovascular: Negative for chest pain, palpitations, and edema Respiratory: Negative for shortness of breath, cough, and wheezing, Abdomen/GI: Negative for abdominal pain, nausea, vomiting, diarrhea, and constipation Back: Negative for injury and pain : Negative for painful urination, bleeding or discharge MS/Extremity: Negative for injury and deformity Skin: Negative for rash, and discoloration Neuro: Negative for headache, weakness, numbness, tingling, and seizure Psych: Negative for suicide ideation, homicidal ideation, and hallucinations Physical Exam Physical Exam Dictation General: awake, alert, no acute distress Head/Face: Normocephalic, atraumatic Eyes: PERRL, EOMI, normal conjunctiva ENT: oral cavity clear, oral mucosa moist, rhino rocket in place in the right nostril Neck: Supple, normal range of motion Cardiovascular: RRR, normal S1/S2 Respiratory: No respiratory distress Skin: Warm, dry, normal turgor, no rash MS/Extremity: Pulses equal, no cyanosis, neurovascular intact, FROM Neuro: COAx4, GCS 15, strength 5/5, CN 2-12 intact, normal cerebellar exam, normal gait Psych: Normal behavior, mood, and affect normal MDM MDM: Differential diagnosis: Rationale: 74 y/o male who presents to the emergency department for removal of a wrong walking from the right nostril. Patient had the rhino rocket placed three days ago for epistaxis here in the ED. Patient followed up with PCP referred patient back to the ED for removal. Patient denies any bleeding or further associated symptoms. PMHx DM, HTN, TIA Rhino rocket removal performed in the ED successful with no complications. The patient monitored, epistaxis has fully resolved. Patient was educated on findings and diagnosis. Advised to follow up with PCP. Return to the emergency department if any worsening symptoms. Patient verbalized understanding. Patient stable for discharge. There are no social concerns with this patient. I independently interpreted the test that were performed, results were reviewed by me and considered findings on radiology if ordered. Medical management and examination interpretation discussions were had by me with other qualified healthcare professionals as indicated for the patient's care. ED Course Vital Signs Date Time Temp Pulse Resp B/P (MAP) Pulse Ox O2 Delivery O2 Flow Rate FiO2 07/10/24 11:20 97.9 67 18 156/74 99 Room Air DX & DISP Disposition: Discharge Departure Impression: Primary Impression: Encounter for removal of nasal packing Additional Impression: Wellness examination Condition: Stable Scripts Sodium Chloride (Saline Nasal [place]) 0.65 % [place] 1 SPRAY NS QID for 7 Days, #60 ML 0 Refills Prov: JAKE CADENA 07/10/24 Additional Instructions: Discharge home. Rest. Follow up with primary care DrRamiro in 24 hours. Return to the ER for any acute changes or worsening symptoms. If any medications were prescribed take as directed. Okay to continue home medications unless otherwise discussed during your visit in the emergency room today. Patient was also advised to follow-up with primary care physician in 1 to 2 days for continued monitoring. Referrals: ELEN GAGE (PCP) I performed the substantive portion of the visit. I have reviewed and personally made and approve the management plan that is documented in the notes by myself or the MELONY. I acknowledge full responsibility for the patient's management plan. JAKE CADENA Jul 10, 2024 11:42
[2024-07-10] MEDS ORDERED: SODI30SP3 NS (11:57)
== END 2024-07-10 12:04 | disposition home or self-care (01) ==
LOC: EDH 11:19
DX: R04.0 Epistaxis (principal); E11.9 Type 2 diabetes mellitus without complications; I10 Essential (primary) hypertension; Z48.00 Encounter for change or removal of nonsurgical wound dressing; Z79.4 Long term (current) use of insulin; Z79.82 Long term (current) use of aspirin; Z79.899 Other long term (current) drug therapy; Z86.73 Personal history of transient ischemic attack (TIA), and cerebral infarction without residual deficits
CPT/HCPCS: 99282